=== PATIENT | female | born 1930 | race Caucasian/White ===

== ENCOUNTER → 2017-06-04 | Outpatient (CLI) | payer MEDICARE ==
[~2017-06-04] MED LIST: ALEN5TAB2 PO; ASCO500T8 PO; ATOR40TA78 PO; AZIT250T89 PO; CALC1CAP8 PO; CYAN1TAB29 PO; DONE5TAB7 PO; FLUD0.1T PO; FLUT16SP NAS; GLUC1CAP48 PO; LIOT5TAB3 PO; MULT-709 PO; OMEG1CAP23 PO; PRED10TA PO; VITA1TAB86 PO; [UNRECOGNIZED DRUG - REMARK] PO; [UNRECOGNIZED DRUG - REMARK] PO
== END | disposition home or self-care (01) ==
LOC: CFH 10:15
PROVIDERS: ATTEND Internal Medicine Cardiovascular Disease
DX: I08.0 Rheumatic disorders of both mitral and aortic valves (principal); I95.9 Hypotension, unspecified
CPT/HCPCS: 93306

== ENCOUNTER 2020-03-14 18:47 | Emergency (ER) | payer MEDICARE ==
[~2020-03-14] VITALS: Ht 162.6 cm; Wt 72.7 kg
[~2020-03-14 18:47] MED LIST changes: -ALEN5TAB2 PO; +ALEN5TAB5 PO; -FLUT16SP NAS; +FLUT16SP24 NAS; +LIOT5TAB11 PO; -LIOT5TAB3 PO
[2020-03-14 18:49] VITALS: BP 183/74
--- NOTE | 2020-03-14 20:09 | NUR ---
RN to bedside, provided patient with warm blanket Midlevel provider to bedside, assessed hand. Awaiting xray of affected limb
[2020-03-14] MEDS ORDERED: NEOSPORIN OINT. PKT 1 PACKET ONE (20:24)
== END 2020-03-14 20:57 | disposition home or self-care (01) ==
LOC: ED 20:30
DX: S61.401A Unspecified open wound of right hand, initial encounter (principal); E78.00 Pure hypercholesterolemia, unspecified; Z90.89 Acquired absence of other organs; Z87.891 Personal history of nicotine dependence; W22.8XXA Striking against or struck by other objects, initial encounter; Y93.89 Activity, other specified; Y92.009 Unspecified place in unspecified non-institutional (private) residence as the place of occurrence of the external cause; Y99.8 Other external cause status
CPT/HCPCS: 99283